=== PATIENT | male | born 1960 | race Caucasian/White ===

== ENCOUNTER → 2017-06-14 | Outpatient (CLI) | payer BC ==
[~2017-06-14] MED LIST: COEN100C7 PO; HYDR12.55 PO; IBUP-1050 PO; LOSA1TAB38 PO; METF-384 PO; MULT-506 PO; NUTRTAB55 PO; OMEG10007 PO; PRAV20TA PO; RXC5 PO
== END | disposition home or self-care (01) ==
LOC: C.CTS 11:16
PROVIDERS: ATTEND Orthopaedic Surgery
DX: M19.012 Primary osteoarthritis, left shoulder (principal); M19.011 Primary osteoarthritis, right shoulder; M25.511 Pain in right shoulder

== ENCOUNTER 2017-07-21 05:02 | Inpatient (IN) | payer BC ==
[2017-06-14 11:39] VITALS: BMI 35.0
--- NOTE | 2017-06-14 12:07 | PAT Medication Instructions ---
Service Date Jun 14, 2017. Current Home Medication List Coenzyme Q10 (Ubidecarenone) (Coq10), 100 MG PO QAM Hydrochlorothiazide (Hydrochlorothiazide), 1 TAB PO QAM Ibuprofen (Advil), 600 MG PO PRN Losartan Potassium (Cozaar), 100 MG PO QPM Metformin Hcl (Glucophage), 1,000 MG PO QAM Multivitamin (Multivitamin), 1 TAB PO QAM Nutritional Supplements (Osteo Advance), 1,500 MG PO QAM Pravastatin (Pravachol ), 10 MG PO QPM Medication Instructions For Your Scheduled Surgery - Hold the following medications 2 weeks prior to surgery: Coenzyme Q10 (Ubidecarenone) (Coq10), 100 MG PO QAM - Check with surgeon for instructions: Ibuprofen (Advil), 600 MG PO PRN - Hold the following medications 24 hours prior to surgery: Losartan Potassium (Cozaar), 100 MG PO QPM - Hold the following medications 48 hours prior to surgery: Metformin Hcl (Glucophage), 1,000 MG PO QAM - Hold the following medications the morning of surgery: Hydrochlorothiazide (Hydrochlorothiazide), 1 TAB PO QAM Multivitamin (Multivitamin), 1 TAB PO QAM Nutritional Supplements (Osteo Advance), 1,500 MG PO QAM - Take the following medications as scheduled the night before surgery: Pravastatin (Pravachol ), 10 MG PO QPM If you have any questions please call us at [phone] or [phone] or [phone]
--- NOTE | 2017-06-14 12:51 | DIAGNOSTIC IMAGING REPORT ---
CHEST 2 VIEWS ROUTINE CLINICAL HISTORY: Preoperative chest COMPARISON STUDY: 03/29/2016 FINDINGS: The cardiac and mediastinal contours are normal. There is no evidence of focal pulmonary consolidation. There is no evidence of failure. No pleural effusions are visualized.[There are postsurgical changes of a left shoulder arthroplasty. Arthritic changes are present within the right shoulder. IMPRESSION: No active disease in the chest. Electronically signed by: Jorge Moreira M.D. 06/14/2017 12:50 PM Dictated Date/Time: 06/14/2017 12:49 PM
[2017-06-14 12:53] LABS: BASO % 0.7 %; BASO ABS # 0.05 K/uL (0-0.2); EOS % 2.2 %; EOS ABS # 0.16 K/uL (0-0.5); HEMATOCRIT 41.1 % (42-52); HEMOGLOBIN 14.4 g/dL (14.0-18.0); IG# 0.05 K/uL (0.00-0.02); LYMPH ABS # 2.95 K/uL (1.2-3.4); MEAN CORPUSCULAR HEMOGLOBIN 31.2 pg (25-34); MEAN PLATELET VOLUME 10.4 fL (7.4-10.4); MONO % 7.9 %; MONO ABS # 0.58 K/uL (0.11-0.59); NEUT % 48.5 %; NEUT ABS # 3.58 K/uL (1.4-6.5); PLATELET COUNT 178 K/uL (130-400); RED CELL DISTRIBUTION WIDTH CV 13.6 % (11.5-14.5); RED CELL DISTRIBUTION WIDTH SD 43.9 fL (36.4-46.3); WHITE BLOOD COUNT 7.37 K/uL (4.8-10.8)
[2017-06-14 13:06] LABS: PTT PATIENT 27.1 SECONDS (21.0-31.0)
[2017-06-14 13:19] LABS: CALCIUM 8.8 mg/dl (8.5-10.1); CREATININE 0.8 mg/dl (0.60-1.40); POTASSIUM 3.5 mmol/L (3.5-5.1)
--- NOTE | 2017-07-20 07:04 | HISTORY & PHYSICAL EXAMINATION ---
DATE OF ADMISSION: 07/21/2017 CHIEF COMPLAINT: Primary osteoarthritis of the right shoulder. HISTORY OF PRESENT ILLNESS: Lavelle is a 57-year-old male who has been dealing with a several year history of chronic increasing right shoulder pain. I did a left total shoulder arthroplasty on him couple years ago. He was doing very well with that. X-rays and clinical examination of the right shoulder have been diagnostic for primary osteoarthritis. After failing conservative treatment, he has elected to proceed with a right total shoulder arthroplasty. PAST MEDICAL HISTORY: Significant for heart murmur, hypertension, hyperlipidemia, non-insulin dependent diabetes, osteoarthritis and obesity. PAST SURGICAL HISTORY: Significant for appendectomy, a left knee surgery and a left total shoulder arthroplasty. ALLERGIES: None. MEDICATIONS: Includes losartan 100 mg daily, hydrochlorothiazide 12.5 mg daily, metformin 1000 mg twice a day and pravastatin 10 mg daily. FAMILY HISTORY: Denies. SOCIAL HISTORY: Denies any smoking, alcohol or drug use. He likes to remain active. REVIEW OF SYSTEMS: He complains of right shoulder pain. All other pertinent review of systems are negative. PHYSICAL EXAMINATION: GENERAL: He is awake, alert and oriented x3. He is in no apparent distress. He is very pleasant. HEENT: Pupils are equal, round and reactive to light. Extraocular motion intact. Oral mucosa is pink and moist. HEART: Regular rate per radial pulse. LUNGS: Yamilet symmetrically bilaterally with no audible breath sounds. ABDOMEN: Soft, nontender, nondistended. MUSCULOSKELETAL: On physical examination of his shoulder, he has about 120 degrees of forward elevation, 110 degrees of abduction. He has 5/5 muscle strength to full can testing and external rotation, significant crepitus to range of motion. Negative belly press test. IMAGING DATA: X-rays of the right shoulder do show advanced osteoarthritis with joint space narrowing and osteophyte formation. IMPRESSION: Primary osteoarthritis of the right shoulder. PLAN: We will proceed with a right total shoulder arthroplasty. Postoperatively, he will be placed in an arm sling and kept overnight in the hospital for postoperative medical management.
[2017-07-21] VITALS (9 sets, daily range): BP systolic 115–145; BP diastolic 71–98; PULSE 71–101; TEMP 36.3–37; O2SAT 90–95; Ht 180.3 cm; Wt 113.4 kg
[~2017-07-21] VITALS: Ht 180.3 cm; Wt 113.4 kg
[~2017-07-21 05:02] MED LIST changes: -OMEG10007 PO; -RXC5 PO
[2017-07-21] MEDS ORDERED: ROPIVACAINE 5MG/ML 30 ML 150 MG, BUPIVACAINE 0.5% MPF INJ 30 ML, EpINEphrine HCL INJ 0.... INFIL SCH ×8 (06:00)
[2017-07-21] MEDS ORDERED: LACTATED RINGER'S 1000ML IV SCH (06:00)
[2017-07-21] MEDS ORDERED: LACTATED RINGER'S 1000ML 1,000 ML IV SCH (06:00)
[2017-07-21] MEDS ORDERED: CEFAZOLIN 2000MG IV PUSH 10 ML IV SCH (06:00)
[2017-07-21] MEDS ORDERED: GABAPENTIN 300 MG CAP PO SCH (06:00)
[2017-07-21] MEDS ORDERED: ACETAMINOPHEN 500 MG TAB PO SCH (06:00)
[2017-07-21] MEDS ORDERED: FAMOTIDINE 20 MG TAB PO SCH (06:00)
--- NOTE | 2017-07-21 06:25 | History & Physical Bridge Note ---
H&P Re-Evaluation Bridge Note: I have examined the patient, reviewed the History & Physical and in the interval since the performance of the History & Physical I have noted the following changes of clinical significance: No changes noted
[2017-07-21] MEDS: TRANEXAMIC ACID INJ 1,000 MG in SYRINGE 0 ML IV SCH ×2 (06:30→10:34)
[2017-07-21] MEDS ORDERED: ROPIVACAINE 0.5% 5 MG/ML 30 ML VIAL ONE (06:31)
[2017-07-21] MEDS ORDERED: DEXAMETHASONE SOD INJ 4 MG/ML VIAL ONE (06:34)
[2017-07-21] MEDS ORDERED: PROPOFOL IV EMULSION 10 MG/ML 20 ML VIAL IV ONE (06:34)
[2017-07-21] MEDS ORDERED: LIDOCAINE HCL 2% 2 ML VIAL (20MG/ML) ONE (06:34)
[2017-07-21] MEDS ORDERED: ROCURONIUM BROMIDE 10 MG/ML 5 ML VIAL IV ONE ×2 (06:34→07:25)
[2017-07-21] MEDS ORDERED: ONDANSETRON INJ 2 MG/ML 2 ML VIAL ONE (06:34)
[2017-07-21] MEDS ORDERED: MIDAZOLAM HCL 1 MG/ML 2ML VIAL ONE (06:34)
[2017-07-21] MEDS ORDERED: FENTANYL CITRATE INJ 50 MCG/1 ML 2 ML VIAL ONE (06:35)
[2017-07-21] MEDS ORDERED: ORTHO JOINT ANESTHETIC ONE (06:41)
[2017-07-21] MEDS ORDERED: BACITRACIN 50000 UNIT VIAL ONE (06:41)
[2017-07-21] MEDS ORDERED: PHENYLEPHRINE 100MCG/ML 5ML SYR ONE (07:29)
--- NOTE | 2017-07-21 08:21 | [facility] Post Operative Brief Note ---
Immediate Operative Summary Operative Date Jul 21, 2017. Pre-Operative Diagnosis Primary osteoarthritis of the right shoulder Post-Operative Diagnosis Primary osteoarthritis of the right shoulder Procedure(s) Performed Right total shoulder arthroplasty Surgeon Dr. Meyer Disintegrator Feeder Surgeon(s) David Hayes PA-C Estimated Blood Loss 200cc Findings as above Specimens A. Right humeral head Complication(s) None Disposition Recovery Room / PACU
[2017-07-21] MEDS ORDERED: MoRPHine SULFATE 2 MG/ML CARP IV PRN (08:30)
[2017-07-21] MEDS ORDERED: GLUCAGON FOR INJ 1 MG VIAL SQ PRN (08:30)
[2017-07-21] MEDS ORDERED: GLUCOSE 10 TABS/TUBE PO PRN (08:30)
[2017-07-21] MEDS ORDERED: SOD PHOSPHATE/SOD BIPHOSPHATE ENEMA 132 ML BTL PR PRN (08:30)
[2017-07-21] MEDS ORDERED: ONDANSETRON INJ 2 MG/ML 2 ML VIAL IV PRN ×2 (08:30→09:00)
[2017-07-21] MEDS ORDERED: MAGNESIUM HYDROXIDE SUSP 30 ML UDC PO PRN (08:30)
[2017-07-21] MEDS ORDERED: METOCLOPRAMIDE HCL INJ 5 MG/ML 2 ML VIAL IV PRN (08:30)
[2017-07-21] MEDS ORDERED: GLUCOSE 40% GEL 15 GM TUBE PO PRN (08:30)
[2017-07-21] MEDS ORDERED: DEXTROSE 50% 50 ML SYR IV PRN (08:30)
[2017-07-21] MEDS ORDERED: NALOXONE HCL 0.4 MG/1 ML VIAL/CARP IV PRN (08:30)
[2017-07-21] MEDS ORDERED: BISACODYL 10 MG SUPP PR PRN (08:30)
[2017-07-21] MEDS ORDERED: NEOSTIGMINE METHYLSULFATE 5 MG/5 ML SYR ONE (08:45)
[2017-07-21] MEDS ORDERED: GLYCOPYRROLATE INJ 0.2 MG/ML VIAL ONE (08:45)
[2017-07-21] MEDS ORDERED: HYDROmorphone INJ 2 MG/ML SYR/VIAL IV PRN (09:00)
[2017-07-21] MEDS ORDERED: KETOROLAC TROMETHAMINE 30 MG/ML VIAL IV. PRN (09:00)
[2017-07-21] MEDS ORDERED: LABETALOL HCL IV 5 MG/ML 20ML IV PRN (09:00)
[2017-07-21] MEDS ORDERED: ATROPINE SULFATE 0.1 MG/ML 5ML SYR IV PRN (09:00)
[2017-07-21] MEDS ORDERED: PHARMACY GLYCEMIC MGMT CONSULT PRN (09:02)
--- NOTE | 2017-07-21 09:22 | DIAGNOSTIC IMAGING REPORT ---
R SHOULDER MIN 2 VIEWS ROUTINE CLINICAL HISTORY: Post shoulder surgery COMPARISON: 05/08/2017 DISCUSSION: There are postsurgical changes of a total right shoulder arthroplasty. There are no acute fractures or dislocations. There are overlying skin lizette and surgical drains. There is air in the soft tissues consistent with recent surgery. There are atelectatic changes present the right lung base. IMPRESSION: Postsurgical changes of a total right shoulder arthroplasty. Electronically signed by: Jorge Moreira M.D. 07/21/2017 9:21 AM Dictated Date/Time: 07/21/2017 9:20 AM
[2017-07-21] MEDS ORDERED: LANTUS PER UNIT CHARGE SQ ONE (10:00)
--- NOTE | 2017-07-21 10:02 | Pharmacy Progress Note ---
Glycemic Control Intl Consult Date of Service Jul 21, 2017. Scope Glycemic Pharmacist consulted by Dr Meyer on 07/21/17 for glycemic control and to write orders per [facility] inpatient glycemic control protocol Objective Weight (Kilograms): 113.40 Accuchecks BSG (last 24hrs): Test 07/21/17 05:20 07/21/17 09:30 Bedside Glucose 172 mg/dl (70-99) 168 mg/dl (70-99) Recent Pertinent Medications Outpatient Anti-diabetic Regimen: * Metformin 1000mg po qPM * No recent HbA1c available for review. Per [facility] records, last HbA1c = 6.1 % (08/10/15) Risk Factors for Insulin Resistance: * Recent Surgery: s/p R total shoulder arthroplasty on 07/21/17 * Diet: T2DM Assessment & Plan ASSESSMENT: * 57 y/o M with osteoarthritis primarily in R shoulder, admitted for R total shoulder arthroplasty. * Only 2 BG available for review at time of consult; fasting was 172 mg/dL and 168 mg/dL post-op. Elevated BG possibly from metformin held x 48 hours prior to surgery. Outpatient glycemic control unknown at this time; he was only on oral therapy with Metformin 1000mg po qPM. * No pre-op or post-op steroids noted. * Given patient's age and recent surgery, need aggressive glycemic control. Choose weight-based insulin dosing with stress of 2. PLAN FOR INPATIENT GLYCEMIC CONTROL: * Holding outpatient oral diabetes medications for now. May consider restarting Metformin tomorrow. * Basal insulin with LANTUS 20 units SC x 1 dose now given elevated fasting BG * Plan reassess this afternoon to determine if evening dose needed * Correctional Insulin with NOVOLOG / REGULAR per scale ACHS or Q6hrs while NPO * Goal Range: Low 110 mg/dL - High 150 mg/dL * Correction Factor: 20 mg/dL/unit * Nutritional / Prandial insulin per carb ratio of 1 unit per 7 grams CHO consumed * HbA1c ordered with AM labs 07/22/17 to assess outpatient glycemic control * Please note that the plan above was derived based on current level of insulin resistance and hospital stress. These recommendations are appropriate for inpatient admission only. Plan of care upon discharge will need to be reassessed to avoid potential outpatient hypo/hyperglycemia. Thank you.
--- NOTE | 2017-07-21 10:08 | Anesthesiology Progress Note ---
Anesthesia Post Op Note Date & Time Jul 21, 2017 at 10:08 Vital Signs Pain Intensity: 0 Vital Signs Past 12 Hours Date Time Temp Pulse Resp B/P (MAP) Pulse Ox O2 Delivery O2 Flow Rate FiO2 07/21/17 09:35 36.4 72 13 118/80 95 Nasal Cannula 2 07/21/17 09:25 36.0 71 16 127/82 95 Nasal Cannula 2 07/21/17 09:15 71 16 132/98 91 Nasal Cannula 2 07/21/17 09:05 76 16 132/89 98 Oxymask 10 07/21/17 08:55 80 13 143/86 98 Oxymask 10 07/21/17 08:49 36.1 81 16 129/90 98 Oxymask 10 07/21/17 05:39 36.8 88 18 138/98 95 Room Air Notes Mental Status: alert / awake / arousable, participated in evaluation Pt Amnestic to Procedure: Yes Nausea / Vomiting: adequately controlled Pain: adequately controlled Airway Patency, RR, SpO2: stable & adequate BP & HR: stable & adequate Hydration State: stable & adequate Anesthetic Complications: no major complications apparent
[2017-07-21] MEDS: POTASSIUM CHLORIDE INJ 10 MEQ in SODIUM CHLORIDE 0.9% 1000ML 1,000 ML IV SCH ×2 (10:59→21:10)
[2017-07-21] MEDS: KETOROLAC TROMETHAMINE 30 MG/ML VIAL IV. SCH ×2 (11:00→18:23)
[2017-07-21] MEDS: INSULIN ASPART 100 UNITS/ML 3 ML PEN SC SCH ×3 (12:46→21:07)
--- NOTE | 2017-07-21 13:43 | Discharge Instructions ---
Discharge Instructions Date of Service Jul 21, 2017. Admission Reason for Admission: Degenerative Joint Disease Right Shoulder Discharge Discharge Diagnosis / Problem: Right Total Shoulder Discharge Goals Goal(s): Decrease discomfort, Improve function Activity Recommendations Activity Limitations: as noted below Activity and Therapy Recommendations: * Wear your sling for 3 weeks, unless otherwise instructed. You may remove your sling to shower and to dress, but otherwise, you should be in your sling at all times, including while sleeping * The shoulder replacement is very stable and you can use your hand while in the sling * Physical Therapy should start about 3-5 days from your day of surgery. Therapy will last about 8-12 weeks * You were shown a series of exercises in the hospital. Do these exercises daily including the exercises you were shown in physical therapy. Medications: * Narcotic You will likely be sent home from the hospital with a prescription for the narcotic pain medication that worked best throughout your stay. * Other medications may be prescribed for specific circumstances. If you have any questions, please call the office at . * Resume previous home medications unless otherwise instructed Showering: You may shower 5 days from the day of surgery. Let the soapy shower water run over the lizette. Do not scrub or soak the incision. Things To Watch For: * Drainage from the incision site that occurs more than one week after your surgery. * Increased redness at the incision site. * Fever above 102 degrees Fahrenheit. * Unusual chest pain or shortness of breath. * Call [facility] at with any of the above problems Follow-Up Visit: Follow-up with Dr. Meyer 2 weeks after your day of surgery. An appointment was probably scheduled when you signed-up for surgery in the office. If you have any questions call Office Instructions: More detailed instructions as well as Frequently Asked Questions were provided in a folder by our office when you signed-up for surgery. Please review these instructions when you get home. If you have any further questions or concerns, please feel free to call the office at [phone] . Current Hospital Diet Patient's current hospital diet: Diabetes Type 2 Diet Discharge Diet Recommended Diet: Diabetes Type 2 Diet Procedures Procedures Performed: Right total shoulder arthroplasty Pending Studies Studies pending at discharge: no Medical Emergencies . Who to Call and When: Medical Emergencies: If at any time you feel your situation is an emergency, please call 911 immediately. . Non-Emergent Contact Non-Emergency issues call your: Surgeon Call Non-Emergent contact if: wound has increased drainage, wound has increased redness . "Provider Documentation" section prepared by Rhys Meyer. . VTE Core Measure Inpt VTE Proph given/why not?: Treatment not indicated
--- NOTE | 2017-07-21 13:48 | OPERATIVE REPORT ---
DATE OF OPERATION: 07/21/2017 PREOPERATIVE DIAGNOSIS: Primary osteoarthritis of the right shoulder. POSTOPERATIVE DIAGNOSIS: Same. PROCEDURE: Right total shoulder arthroplasty. SURGEON: Dr. Rhys Meyer. MAINSPRING REVERSE WINDER: Tyrese Hayes PA-C, whose assistance was necessary for retraction and closure. ANESTHESIA: General with a right interscalene nerve block. COMPLICATIONS: None. CONDITION: Stable to PACU. IMPLANTS USED: I used a Biomet comprehensive right total shoulder arthroplasty with a size medium glenoid, a size 12 mini pressfit stem and a 46 x 18 mm eccentric humeral head. The glenoid was cemented with Palacos-G cement. INDICATIONS: Lavelle is a pleasant 57-year-old male who presented to my office initially with bilateral shoulder pain. I did a left total shoulder arthroplasty on him a couple years ago, he has done very well with that. Unfortunately, he is having a lot of right shoulder pain. X-rays and clinical examination were diagnostic for primary osteoarthritis of the right shoulder. After failing conservative treatment, he elected to undergo a right total shoulder arthroplasty. OPERATION AND FINDINGS: On 07/21/2017 he arrived at [facility] for the above procedure. He was seen in the preoperative holding area and the operative extremity was identified and signed. He was given preoperative antibiotic and a right interscalene nerve block. He was taken back to the operating room, laid on the table in supine position and put under general anesthesia. He was put into the beachchair position. The right shoulder was prepped and draped in sterile fashion. Time-out was done and the patient and operative extremity was properly identified. A deltopectoral approach was used. Dissection was taken down through the fascia and the anterior shoulder was exposed. The long head of the biceps tendon was tenodesed to the upper border of the pec major and the rotator interval was opened up. The subscapularis was then tenotomized off the lesser tuberosity with a centimeter of cuff tissue remaining. The proximal humerus was exposed. Sequential reaming up to a size 12 reamer was done. Off that final reamer, a proximal humeral resection guide was placed and the humerus was resected at 30 degrees of retroversion and 135 degrees of inclination. The inferior osteophytes were then removed. The glenoid was then exposed. Time was then spent doing a superior capsular release. The Biomet signature guide was then snapped onto the anterior-superior glenoid and a guide pin was placed in the total shoulder arthroplasty hole. A medium glenoid reamer was used to ream the glenoid and the boss was drilled followed by 3 peripheral peg holes. The trial glenoid seemed to be a good fit. The final glenoid was then cemented into place. The proximal humerus was then exposed. Sequential broaching up to a size 12 broach was done. Off that broach, a 46 x 18 mm eccentric trial head was used. The shoulder was brought through a full range of motion and felt to be stable. Trial components were removed. The final size 12 mini stem was impacted into place. A 46 x 18 mm eccentric head was then impacted into place and the shoulder was reduced. It was brought through a full range of motion and felt to be stable. The subscapularis was then tenodesed back to the lesser tuberosity with transosseous FiberWire sutures and [id number] sutures. Two sutures were placed in the lateral rotator interval. The axillary nerve was palpated. Surrounding soft tissues were then irrigated with 100 mL orthopedic pain control cocktail. The wound was then irrigated with 3 liters of normal saline solution with bacitracin. A drain was placed. Skin was closed with 2-0 Vicryl, 3-0 V-Loc suture and lizette. He was then placed in a soft dressing and regular arm sling. He was then extubated, transferred to a litter and taken to the postanesthesia care unit in stable condition. He tolerated the procedure well. I attest to the content of the Intraoperative Record and any orders documented therein. Any exception s are noted below.
[2017-07-21] MEDS: ACETAMINOPHEN IV 1,000 MG in EMPTY BAG 0 ML IV SCH ×2 (14:56→22:23)
[2017-07-21] MEDS: CEFAZOLIN IV 2,000 MG in SYRINGE 0 ML IV SCH (16:51)
[2017-07-21] MEDS: DOCUSATE SODIUM 100 MG CAP PO SCH (20:59)
[2017-07-21] MEDS ORDERED: PRAVASTATIN SOD 20 MG TAB PO SCH (21:00)
[2017-07-21] MEDS ORDERED: SENNA 8.6 MG TAB PO SCH (21:00)
[2017-07-21] MEDS ORDERED: LOSARTAN POTASSIUM 50 MG TAB PO SCH (21:00)
[2017-07-21] MEDS: OXYCODONE HCL IR 5 MG TAB (IMMEDIATE RELEASE) PO PRN (21:02)
[2017-07-22] MEDS: KETOROLAC TROMETHAMINE 30 MG/ML VIAL IV. SCH ×2 (00:28→06:21)
[2017-07-22] MEDS: CEFAZOLIN IV 2,000 MG in SYRINGE 0 ML IV SCH (00:29)
[2017-07-22] MEDS: OXYCODONE HCL IR 5 MG TAB (IMMEDIATE RELEASE) PO PRN ×3 (02:26→10:44)
[2017-07-22 04:03] VITALS: BP 109/69; PULSE 79; TEMP 36.6; O2SAT 95
[2017-07-22] MEDS: ACETAMINOPHEN IV 1,000 MG in EMPTY BAG 0 ML IV SCH (06:20)
[2017-07-22] MEDS: POTASSIUM CHLORIDE INJ 10 MEQ in SODIUM CHLORIDE 0.9% 1000ML 1,000 ML IV SCH (06:21)
[2017-07-22 07:11] VITALS: BP 108/73; PULSE 67; TEMP 36.9; O2SAT 95
[2017-07-22 07:12] LABS: HEMATOCRIT 38.1 % (42-52); MEAN CELL VOLUME 89.4 fL (80-100); MEAN CORPUSCULAR HEMOGLOBIN 30.5 pg (25-34); MEAN CORPUSCULAR HGB CONC 34.1 g/dl (32-36); MEAN PLATELET VOLUME 10.6 fL (7.4-10.4); PLATELET COUNT 175 K/uL (130-400); RED CELL DISTRIBUTION WIDTH CV 13.4 % (11.5-14.5); RED CELL DISTRIBUTION WIDTH SD 43.9 fL (36.4-46.3); WHITE BLOOD COUNT 16.86 K/uL (4.8-10.8)
[2017-07-22 07:16] LABS: HEMOGLOBIN A1C 7.5 % (4.5-5.6)
[2017-07-22] MEDS ORDERED: RXC5 PO (07:34)
[2017-07-22 07:43] LABS: CALCIUM 8.2 mg/dl (8.5-10.1); CREATININE 0.82 mg/dl (0.60-1.40)
--- NOTE | 2017-07-22 07:51 | PROGRESS NOTE ---
DATE: 07/22/2017 CHIEF COMPLAINT: Status post right total shoulder arthroplasty postop day #1. PROGRESS: Lavelle was seen and examined at bedside today. Overall, he is doing fairly well. He has a little soreness in his shoulder, but it is not too bad. He had no acute events overnight. PHYSICAL EXAMINATION: VITAL SIGNS: His vital signs are all stable on room air and he is voiding on his own. RIGHT SHOULDER: The dressing is clean and dry and the drain is to suction. He is wearing a sling as instructed. His radial, median and ulnar nerves were all checked and intact at his wrist. His axillary nerve was not checked yet. LABORATORY DATA: He has an H&H today of 13.0 and 38.1. His glucose is around 169 and he is on insulin. IMAGINGS: X-rays postoperatively of the right shoulder show the prosthesis to be in anatomic alignment without any evidence of fracture, dislocation or loosening. IMPRESSION: Status post right total shoulder arthroplasty postop day #1. PLAN: At this point, he is doing well and happy with his progress. He will be seen by physical therapy today for hand, wrist, elbow and pendulum exercises. The nursing staff can change the dressing and pull the drain and we can discharge him to home later today.
[2017-07-22] MEDS ORDERED: METFORMIN HCL 500 MG TAB PO SCH (08:30)
[2017-07-22] MEDS: INSULIN ASPART 100 UNITS/ML 3 ML PEN SC SCH (08:44)
[2017-07-22] MEDS: DOCUSATE SODIUM 100 MG CAP PO SCH (08:44)
[2017-07-22] MEDS ORDERED: HYDROCHLOROTHIAZIDE 25 MG TAB PO SCH (09:00)
[2017-07-22] MEDS ORDERED: MULTIVITAMIN TAB PO SCH (09:00)
[2017-07-22 09:23] VITALS: BP 108/73; PULSE 67; TEMP 36.9; O2SAT 95
== END 2017-07-22 11:19 | disposition home or self-care (01) | DRG 483 ==
LOC: C.ACU 05:02 → C.3E 08:25 → ENRESERV 09:23
PROVIDERS: ADMIT Orthopaedic Surgery; ATTEND Orthopaedic Surgery
PROC: 0RRJ0J7 Replacement of Right Shoulder Joint with Synthetic Substitute, Glenoid Surface, Open Approach (ICD-10-PCS; principal; 2017-07-21 07:00)
DX: M19.011 Primary osteoarthritis, right shoulder (principal); I10 Essential (primary) hypertension; E78.5 Hyperlipidemia, unspecified; E11.9 Type 2 diabetes mellitus without complications; E66.9 Obesity, unspecified; R01.1 Cardiac murmur, unspecified; Z96.612 Presence of left artificial shoulder joint; Z68.34 Body mass index [BMI] 34.0-34.9, adult